=== PATIENT | female | born 2000 | race Caucasian/White ===

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

== ENCOUNTER 2018-08-09 00:45 | Emergency (ER) | payer OTHER ==
[~2018-08-09] VITALS: Ht 162.5 cm; Wt 81.6 kg
[2018-08-09] MEDS ORDERED: VENTOLIN 02.5 MG/3 M INH (02:07)
[2018-08-09] MEDS ORDERED: ZITHROMAX250 MG PO (02:07)
[2018-08-09] MEDS ORDERED: PREDNISONE20 M1 PO (02:07)
== END 2018-08-09 02:18 | disposition home or self-care (01) ==
LOC: ED 00:45
DX: J20.9 Acute bronchitis, unspecified (principal); H65.93 Unspecified nonsuppurative otitis media, bilateral; Z98.890 Other specified postprocedural states

== ENCOUNTER 2019-07-07 17:34 | Emergency (ER) | payer OTHER ==
[~2019-07-07] VITALS: Ht 160 cm; Wt 104.3 kg
[~2019-07-07 17:34] MED LIST changes: +PREDNISONE20 M1 PO; +VENTOLIN 02.5 MG/3 M INH; +ZITHROMAX250 MG PO
[2019-07-07] MEDS ORDERED: FLONASE ALLERG9.9 ML NAS (17:43)
[2019-07-07] MEDS ORDERED: ALLEGRA-D 24 H1 EACH PO (17:43)
== END 2019-07-07 17:55 | disposition home or self-care (01) ==
LOC: ED 17:34
DX: J06.9 Acute upper respiratory infection, unspecified (principal); H92.03 Otalgia, bilateral

== ENCOUNTER 2020-04-30 17:14 | Emergency (ER) | payer OTHER ==
[~2020-04-30] VITALS: Ht 160 cm; Wt 104.8 kg
[~2020-04-30 17:14] MED LIST changes: +ALLEGRA-D 24 H1 EACH PO; +FLONASE ALLERG9.9 ML NAS
[2020-04-30] MEDS ORDERED: ADDERALL 30 MG30 MG PO (18:08)
[2020-04-30] MEDS ORDERED: ADDERALL 20 MG20 MG PO (18:08)
[2020-04-30] MEDS ORDERED: TRAZODONE50 MG PO (18:09)
== END 2020-04-30 18:48 | disposition left against medical advice (07) ==
LOC: ED 17:14
DX: L02.92 Furuncle, unspecified (principal); Z53.21 Procedure and treatment not carried out due to patient leaving prior to being seen by health care provider

== ENCOUNTER 2020-05-01 19:10 | Emergency (ER) | payer OTHER ==
[~2020-05-01 19:10] MED LIST changes: +ADDERALL 20 MG20 MG PO; +ADDERALL 30 MG30 MG PO; +TRAZODONE50 MG PO
[2020-05-02] MEDS ORDERED: SEPTDS PO (13:41)
== END 2020-05-01 19:44 | disposition left against medical advice (07) ==
LOC: ED 19:10
DX: L02.91 Cutaneous abscess, unspecified (principal); Z53.21 Procedure and treatment not carried out due to patient leaving prior to being seen by health care provider

== ENCOUNTER 2020-05-02 13:26 | Emergency (ER) | payer OTHER ==
[~2020-05-02] VITALS: Ht 160 cm; Wt 104.8 kg
[2020-05-02] MEDS ORDERED: SEPTDS PO (13:41)
== END 2020-05-02 13:50 | disposition home or self-care (01) ==
LOC: ED 13:26
DX: L02.415 Cutaneous abscess of right lower limb (principal)

== ENCOUNTER 2020-05-26 16:48 | Emergency (ER) | payer OTHER ==
[~2020-05-26 16:48] MED LIST changes: +SEPTDS PO
[2020-05-26 17:38] LABS: BASO % 0.5 % (0.0-1.0); EOS # 0.1 10*3/uL (0.0-0.4); EOS % 2.3 % (1.0-4.0); HEMATOCRIT 34.4 % (37.0-47.0); LYMPH # 1.8 10*3/uL (1.3-4.4); LYMPH % 45.1 % (27.0-41.0); MEAN CELL VOLUME 95.3 fl (81.0-99.0); MEAN CORPUSCULAR HGB 31.9 pg (27.0-31.0); MEAN CORPUSCULAR HGB CONC 33.4 g/dl (33.0-37.0); MEAN PLATELET VOLUME 10.5 fl (9.6-12.3); MONO # 0.3 10*3/uL (0.1-1.0); MONO % 7.1 % (3.0-9.0); NEUT # 1.8 10*3/uL (2.3-7.9); PLATELET COUNT AUTOMATED 137 10*3/uL (130-400); RED BLOOD COUNT 3.61 10*6/uL (4.10-5.10); RED CELL DISTRI WIDTH 14.1 % (0-14.5)
[2020-05-26 17:44] LABS: BILIRUBIN NEGATIVE (NEGATIVE); BLOOD NEGATIVE (NEGATIVE); CLARITY CLOUDY (CLEAR); COLOR YELLOW (YELLOW); GLUCOSE NEGATIVE (NEGATIVE); KETONE 2+ (NEGATIVE); LEUKO ESTERASE 2+ (NEGATIVE); NITRITE NEGATIVE (NEGATIVE)
[2020-05-26 17:53] LABS: ALBUMIN 3.2 gm/dl (3.1-4.5); ALKALINE PHOSPHATASE 45 U/L (45-117); BUN 7 mg/dl (7-24); CHLORIDE 112 mmol/L (98-107); CREATININE 0.87 mg/dL (0.55-1.02); LIPASE 148 U/L (73-393); POTASSIUM 3.6 mmol/L (3.5-5.1); SGOT/AST 23 IU/L (3-35); SGPT/ALT 39 U/L (12-78); SODIUM 143 mmol/L (136-145); TOTAL PROTEIN 6.7 gm/dL (6.4-8.2)
[2020-05-26 18:11] LABS: BACTERIA 3+; EPITHELIAL CELLS 31-40; MUCOUS 2+; RBC 16-20 rbc/hpf (0-2); WBC 31-40 wbc/hpf (0-5)
[2020-05-26] MEDS ORDERED: KEFLEX500 M1 PO (18:20)
== END 2020-05-26 19:47 | disposition home or self-care (01) ==
LOC: ED 16:48
PROVIDERS: Nurse Practitioner
DX: S93.602A Unspecified sprain of left foot, initial encounter (principal); N39.0 Urinary tract infection, site not specified; K21.9 Gastro-esophageal reflux disease without esophagitis; Z20.2 Contact with and (suspected) exposure to infections with a predominantly sexual mode of transmission; Z79.899 Other long term (current) drug therapy; W18.49XA Other slipping, tripping and stumbling without falling, initial encounter; Y93.89 Activity, other specified; Y92.89 Other specified places as the place of occurrence of the external cause; Y99.8 Other external cause status

== ENCOUNTER 2020-07-15 13:19 | Emergency (ER) | payer OTHER ==
[~2020-07-15] VITALS: Ht 160 cm; Wt 95.3 kg
[~2020-07-15 13:19] MED LIST changes: +KEFLEX500 M1 PO
[2020-07-15] MEDS ORDERED: DOXYCYCLINE100 M3 PO (14:05)
[2020-07-15 14:38] LABS: CLARITY CLEAR (CLEAR); COLOR YELLOW (YELLOW)
[2020-07-15 14:39] LABS: BILIRUBIN NEGATIVE; BLOOD 3+ (NEGATIVE); GLUCOSE NEGATIVE; KETONE NEGATIVE; PH 5.5 (4.5-8.0); UROBILINOGEN 0.2 E.U./dl (0.0-1.0)
[2020-07-15 14:46] LABS: CALCIUM OXALATE CRYSTALS 1+; LEUKO ESTERASE TRACE (NEGATIVE); NITRITE NEGATIVE (NEGATIVE)
[2020-07-15 14:47] LABS: BACTERIA 1+; MUCOUS 1+
== END 2020-07-15 15:26 | disposition home or self-care (01) ==
LOC: ED 13:19
PROVIDERS: Physician Assistant
DX: Z20.2 Contact with and (suspected) exposure to infections with a predominantly sexual mode of transmission (principal); Z79.899 Other long term (current) drug therapy

== ENCOUNTER 2021-01-04 23:30 | Emergency (ER) | payer OTHER ==
[~2021-01-04] VITALS: Ht 157.4 cm; Wt 87.5 kg
[~2021-01-04 23:30] MED LIST changes: +DOXYCYCLINE100 M3 PO
[2021-01-05 00:03] LABS: BASO % 0.3 % (0.0-1.0); EOS # 0.1 10*3/uL (0.0-0.4); EOS % 1.2 % (1.0-4.0); HEMATOCRIT 37.8 % (37.0-47.0); LYMPH # 2.4 10*3/uL (1.3-4.4); LYMPH % 32.9 % (27.0-41.0); MEAN CELL VOLUME 93.3 fl (81.0-99.0); MEAN CORPUSCULAR HGB 31.6 pg (27.0-31.0); MEAN CORPUSCULAR HGB CONC 33.9 g/dl (33.0-37.0); MEAN PLATELET VOLUME 10.4 fl (9.6-12.3); MONO # 0.5 10*3/uL (0.1-1.0); MONO % 6.3 % (3.0-9.0); NEUT # 4.4 10*3/uL (2.3-7.9); PLATELET COUNT AUTOMATED 179 10*3/uL (130-400); RED BLOOD COUNT 4.05 10*6/uL (4.10-5.10); RED CELL DISTRI WIDTH 11.7 % (0-14.5); WHITE BLOOD COUNT 7.4 10*3/uL (4.8-10.8)
[2021-01-05 00:17] LABS: BUN 8 mg/dl (7-24); CHLORIDE 109 mmol/L (98-107); CREATININE 0.59 mg/dL (0.55-1.02); POTASSIUM 3.9 mmol/L (3.5-5.1); SODIUM 141 mmol/L (136-145)
== END 2021-01-05 01:07 | disposition home or self-care (01) ==
LOC: ED 23:30
PROVIDERS: Internal Medicine
DX: J06.9 Acute upper respiratory infection, unspecified (principal); Z79.899 Other long term (current) drug therapy; Z98.890 Other specified postprocedural states; Z20.822 Contact with and (suspected) exposure to COVID-19

== ENCOUNTER 2021-04-17 11:18 | Emergency (ER) | payer OTHER ==
[~2021-04-17] VITALS: Ht 160 cm; Wt 96.6 kg
[2021-04-17 11:47] LABS: BILIRUBIN Negative (Negative); BLOOD Negative (Negative); CLARITY Turbid (Clear); COLOR Yellow (Yellow); GLUCOSE Negative (Negative); KETONE Negative (Negative); LEUKO ESTERASE 1+ (Negative); NITRITE Negative (Negative); SPECIFIC GRAVITY 1.015 (1.001-1.030)
[2021-04-17 11:58] LABS: PH 8.5 (4.5-8.0)
[2021-04-17 11:59] LABS: BACTERIA 2+; EPITHELIAL CELLS 16-20; RBC 0-2 rbc/hpf (0-2)
[2021-04-17 12:30] LABS: BASO % 0.3 % (0.0-1.0); EOS # 0.1 10*3/uL (0.0-0.4); EOS % 1.2 % (1.0-4.0); HEMATOCRIT 35.7 % (37.0-47.0); LYMPH # 1.9 10*3/uL (1.3-4.4); LYMPH % 27.4 % (27.0-41.0); MEAN CELL VOLUME 95.5 fl (81.0-99.0); MEAN CORPUSCULAR HGB 32.1 pg (27.0-31.0); MEAN CORPUSCULAR HGB CONC 33.6 g/dl (33.0-37.0); MEAN PLATELET VOLUME 10.4 fl (9.6-12.3); MONO # 0.5 10*3/uL (0.1-1.0); MONO % 6.8 % (3.0-9.0); NEUT # 4.4 10*3/uL (2.3-7.9); NEUT % 64.2 % (47.0-73.0); PLATELET COUNT AUTOMATED 142 10*3/uL (130-400); RED BLOOD COUNT 3.74 10*6/uL (4.10-5.10); WHITE BLOOD COUNT 6.9 10*3/uL (4.8-10.8)
[2021-04-17 12:46] LABS: ALBUMIN 2.6 gm/dl (3.1-4.5); ALKALINE PHOSPHATASE 62 U/L (45-117); BUN 7 mg/dl (7-24); CHLORIDE 110 mmol/L (98-107); CREATININE 0.56 mg/dL (0.55-1.02); LIPASE 127 U/L (73-393); POTASSIUM 4.6 mmol/L (3.5-5.1); SGOT/AST 9 IU/L (3-35); SGPT/ALT 10 U/L (12-78); SODIUM 138 mmol/L (136-145); TOTAL PROTEIN 6.2 gm/dL (6.4-8.2)
== END 2021-04-17 14:26 | disposition short-term general hospital (02) ==
LOC: ED 11:18
PROVIDERS: Physician Assistant
DX: O26.832 Pregnancy related renal disease, second trimester (principal); N23 Unspecified renal colic; Z3A.27 27 weeks gestation of pregnancy; Z79.899 Other long term (current) drug therapy

== ENCOUNTER 2022-04-03 12:11 | Emergency (ER) | payer OTHER ==
[~2022-04-03] VITALS: Wt 87.5 kg
[2022-04-03] MEDS ORDERED: TYLENOL325 M1 PO (12:33)
[2022-04-03] MEDS ORDERED: PENICILLIN-VK500 MG PO (12:33)
[2022-04-03] MEDS ORDERED: NAPROXEN250 MG PO ×2 (12:33→12:40)
== END 2022-04-03 12:35 | disposition home or self-care (01) ==
LOC: ED 12:11
DX: K02.9 Dental caries, unspecified (principal)

== ENCOUNTER → 2023-12-26 | Outpatient (CLI) | payer OTHER ==
[~2023-12-26] MED LIST changes: +NAPROXEN250 MG PO; +PENICILLIN-VK500 MG PO; +TYLENOL325 M1 PO
== END | disposition home or self-care (01) ==
LOC: RAD 11:42
PROVIDERS: ATTEND Nurse Practitioner Primary Care
DX: R22.0 Localized swelling, mass and lump, head (principal)

== ENCOUNTER 2024-05-15 23:37 | Emergency (ER) | payer OTHER ==
[~2024-05-15] VITALS: Ht 157.4 cm; Wt 77.1 kg
[2024-05-16 00:36] LABS: BILIRUBIN Negative (Negative); BLOOD 1+ (Negative); CLARITY Cloudy (Clear); COLOR Yellow (Yellow); GLUCOSE Negative (Negative); KETONE Trace (Negative); LEUKO ESTERASE Trace (Negative); NITRITE Negative (Negative); PH 6.5 (4.5-8.0); SPECIFIC GRAVITY 1.025 (1.001-1.030)
[2024-05-16 01:05] LABS: BACTERIA 1+; EPITHELIAL CELLS TNTC
[2024-05-16] MEDS ORDERED: Ketorolac Tromethamine 30 MG/ML VIAL IM ONE (02:20)
[2024-05-16] MEDS ORDERED: METHOCARBAMOL500 M1 PO (02:40)
[2024-05-16] MEDS ORDERED: NAPROSYN500 MG PO (02:40)
[2024-05-16] MEDS ORDERED: METHOCARBAMOL 500 MG TAB PO ONE (03:00)
== END 2024-05-16 02:52 | disposition home or self-care (01) ==
LOC: ED 23:37
PROVIDERS: Internal Medicine
DX: M62.838 Other muscle spasm (principal); M54.2 Cervicalgia; M25.511 Pain in right shoulder; R10.30 Lower abdominal pain, unspecified; M79.601 Pain in right arm; M54.50 Low back pain, unspecified; R30.9 Painful micturition, unspecified; Z79.899 Other long term (current) drug therapy; Z79.2 Long term (current) use of antibiotics; Z98.890 Other specified postprocedural states; V89.2XXA Person injured in unspecified motor-vehicle accident, traffic, initial encounter; Y93.89 Activity, other specified; Y92.410 Unspecified street and highway as the place of occurrence of the external cause; Y99.8 Other external cause status

== ENCOUNTER 2024-12-10 15:12 | Emergency (ER) | payer OTHER ==
[~2024-12-10] VITALS: Wt 81.6 kg
[~2024-12-10 15:12] MED LIST changes: +METHOCARBAMOL500 M1 PO; +NAPROSYN500 MG PO
[2024-12-10] MEDS ORDERED: ACETAMINOPHEN 325 MG TAB PO ONE (16:40)
[2024-12-10] MEDS ORDERED: BENZONATATE100 M1 PO (18:24)
[2024-12-10] MEDS ORDERED: TAMIFLU 75MG CA75 MG PO (18:24)
== END 2024-12-10 18:51 | disposition home or self-care (01) ==
LOC: ED 15:12
DX: R50.9 Fever, unspecified (principal); Z20.822 Contact with and (suspected) exposure to COVID-19; R05.9 Cough, unspecified; R42 Dizziness and giddiness; R11.2 Nausea with vomiting, unspecified; Z79.899 Other long term (current) drug therapy; Z79.2 Long term (current) use of antibiotics; Z98.890 Other specified postprocedural states

== ENCOUNTER 2025-09-16 22:49 | Emergency (ER) | payer OTHER ==
[~2025-09-16] VITALS: Ht 162.6 cm; Wt 54.4 kg
[~2025-09-16 22:49] MED LIST changes: +BENZONATATE100 M1 PO; +TAMIFLU 75MG CA75 MG PO
[2025-09-16] MEDS ORDERED: MG-AL HYDROXIDE/SIMETICONE 30 ML UDC PO STA (23:19)
[2025-09-16] MEDS ORDERED: Dicyclomine Hydrochloride 20 MG/10 ML OSYR PO STA (23:19)
[2025-09-16] MEDS ORDERED: Pantoprazole Sodium 20 MG TAB PO ONE ×2 (23:20)
[2025-09-17] MEDS ORDERED: PEPCID20 MG PO (15:54)
[2025-09-17] MEDS ORDERED: Ondansetron4 MG PO (15:54)
[2025-09-17] MEDS ORDERED: CARAFATE1 G1 PO (15:54)
== END 2025-09-17 00:40 | disposition home or self-care (01) ==
LOC: ED 22:49
DX: K20.80 Other esophagitis without bleeding (principal); Z98.890 Other specified postprocedural states

== ENCOUNTER 2025-09-17 13:11 | Emergency (ER) | payer OTHER ==
[~2025-09-17] VITALS: Wt 73.5 kg
[2025-09-17] MEDS ORDERED: MG-AL HYDROXIDE/SIMETICONE 30 ML UDC PO ONE (14:20)
[2025-09-17] MEDS ORDERED: Ondansetron Hydrochloride 4 MG TAB PO ONE (14:30)
[2025-09-17] MEDS ORDERED: CARAFATE1 G1 PO (15:54)
[2025-09-17] MEDS ORDERED: PEPCID20 MG PO (15:54)
[2025-09-17] MEDS ORDERED: Ondansetron4 MG PO (15:54)
== END 2025-09-17 16:08 | disposition home or self-care (01) ==
LOC: ED 13:11
DX: K20.90 Esophagitis, unspecified without bleeding (principal); Z98.890 Other specified postprocedural states